=== PATIENT | female | born 1965 | race Caucasian/White ===

== ENCOUNTER 2016-08-24 09:01 | Emergency (ER) | payer MEDICAID ==
[~2016-08-24] VITALS: Ht 167.6 cm; Wt 60.0 kg
[2016-08-24 09:02] VITALS: BP 140/95
[2016-08-24] MEDS ORDERED: KETAMINE 10 MG/ML, 20ML IV ONE (09:30)
[2016-08-24] MEDS ORDERED: KETAMINE 10 MG/ML, 20ML ONE (09:49)
== END 2016-08-24 10:50 | disposition home or self-care (01) ==
LOC: ED 10:10
DX: M54.16 Radiculopathy, lumbar region (principal); M19.90 Unspecified osteoarthritis, unspecified site
CPT/HCPCS: 96374; 99284